=== PATIENT | female | born 1955 | race Caucasian/White ===

== ENCOUNTER → 2016-12-09 | Outpatient (CLI) | payer BC ==
[2016-12-09 08:42] LABS: BASO # 0.1 (0.0-0.2); BASO % 0.4 % (0.0-2.0); EOS # 0.2 (0.0-0.7); EOS % 1.9 % (0-4.0); GRAN # 8.5 (1.4-6.5); GRAN % 70.4 % (42.2-75.2); HEMATOCRIT 41.7 % (37.0-47.0); HEMOGLOBIN 13.8 g/dl (12.5-16.0); LYMPH # 2.8 (1.2-3.4); LYMPH % 23.3 % (20.0-51.0); MEAN CELL VOLUME 85 fl (80.0-100.0); MEAN CORPUSCULAR HEMOGLOBIN 28 pg (27.0-31.0); MEAN CORPUSCULAR HGB CONC 33 g/dl (33.0-37.0); MEAN PLATELET VOLUME 9.4 fl (7.4-10.4); MONO # 0.4 (0.1-0.6); MONO % 3.4 % (1.7-9.3); PLATELET COUNT 377 K/mm3 (130-400); RED BLOOD COUNT 4.93 M/mm3 (4.10-5.30); REDCELL DISTRIBUTION WIDTH-CV 12.5 % (11.5-14.5); WHITE BLOOD COUNT 12.1 K/mm3 (4.8-10.8)
== END ==
LOC: COL.LAB 08:14
PROVIDERS: Family Medicine
DX: R50.9 Fever, unspecified (principal); R05 Cough

== ENCOUNTER → 2018-04-29 | Outpatient (CLI) | payer BC | LOC: MC.RAD 10:00 | DX: Z12.31 Encounter for screening mammogram for malignant neoplasm of breast (principal) ==

== ENCOUNTER → 2019-05-11 | Outpatient (CLI) | payer BC | LOC: MC.RAD 10:45 | DX: Z12.31 Encounter for screening mammogram for malignant neoplasm of breast (principal) ==

== ENCOUNTER 2021-01-02 20:04 | Emergency (ER) | payer BC ==
[~2021-01-02] VITALS: Ht 162.6 cm; Wt 79.5 kg
[2021-01-02] MEDS ORDERED: PROTONIX20 MG PO (20:42)
[2021-01-02 21:29] LABS: BASO % 0.1 % (0.0-2.0); EOS % 0.1 % (0-4.0); GRAN # 10.7 (1.4-6.5); GRAN % 89.6 % (42.2-75.2); HEMATOCRIT 43.2 % (37.0-47.0); HEMOGLOBIN 13.9 g/dl (12.5-16.0); LYMPH # 0.9 (1.2-3.4); LYMPH % 7.2 % (20.0-51.0); MEAN CELL VOLUME 87 fl (80.0-100.0); MEAN CORPUSCULAR HEMOGLOBIN 28 pg (27.0-31.0); MEAN CORPUSCULAR HGB CONC 32 g/dl (33.0-37.0); MEAN PLATELET VOLUME 9.8 fl (7.4-10.4); MONO # 0.3 (0.1-0.6); MONO % 2.7 % (1.7-9.3); PLATELET COUNT 237 K/mm3 (130-400); RED BLOOD COUNT 4.99 M/mm3 (4.10-5.30); REDCELL DISTRIBUTION WIDTH-CV 13.1 % (11.5-14.5)
[2021-01-02 21:49] LABS: ALBUMIN 4.5 gm/dL (3.5-5.0); BILIRUBIN,TOTAL 0.6 mg/dL (0.0-1.0); CALCIUM 9.3 mg/dL (8.4-10.2); CREATININE, serum 0.62 (0.52-1.25); TOTAL PROTEIN 8.3 gm/dL (6.4-8.2)
[2021-01-02] MEDS ORDERED: PHENERGAN 25 TA25 MG PO (22:04)
[2021-01-02 22:57] VITALS: BP 122/87; PULSE 87; TEMP 99.1
== END 2021-01-02 22:57 | disposition home or self-care (01) ==
LOC: COL.ER 20:04
PROVIDERS: Nurse Practitioner Primary Care
DX: R11.2 Nausea with vomiting, unspecified (principal); T50.Z95A Adverse effect of other vaccines and biological substances, initial encounter; Z88.2 Allergy status to sulfonamides; Z88.1 Allergy status to other antibiotic agents; Z87.891 Personal history of nicotine dependence
CPT/HCPCS: J1885; J2550; J7030

== ENCOUNTER → 2021-02-04 | Outpatient (CLI) | payer BC ==
[~2021-02-04] MED LIST: PHENERGAN 25 TA25 MG PO; PROTONIX20 MG PO
== END ==
LOC: MC.RAD 11:40
DX: Z12.31 Encounter for screening mammogram for malignant neoplasm of breast (principal)

== ENCOUNTER → 2022-04-22 | Outpatient (CLI) | payer MEDICARE | LOC: MC.RAD 14:10 | DX: Z12.31 Encounter for screening mammogram for malignant neoplasm of breast (principal) ==

== ENCOUNTER → 2024-04-04 | Outpatient (CLI) | payer MEDICARE, BC | LOC: COL.RAD 15:46 | DX: R74.8 Abnormal levels of other serum enzymes (principal) ==

== ENCOUNTER → 2024-05-06 | Outpatient (CLI) | payer MEDICARE, BC | LOC: MC.RAD 11:05 | DX: Z12.31 Encounter for screening mammogram for malignant neoplasm of breast (principal) ==

== ENCOUNTER → 2024-05-24 | Outpatient (CLI) | payer MEDICARE, BC ==
[~2024-05-24] VITALS: Ht 162.6 cm; Wt 66.9 kg
[2024-05-24] VITALS (12 sets, daily range): BP systolic 106–129; BP diastolic 65–82; PULSE 53–69; TEMP 98.2
[~2024-05-24] MED LIST changes: +ALLEGRA 60MG TA60 MG PO; +AMBIEN 10MG10 MG PO; +BENADRYL25 M2 PO; +CALCIUM 600MG+D1 TAB PO; +ESTRACE0.1 MG/GM VG; +Gelatin Sponge,Absorbable Size 12-7 SPONGE TP SCH; +MAGNESIUM GLYC100 MG PO; +MELATONIN1 MG PO; +PROTONIX 40MG T40 MG PO; +VITAMIN B COMPL1 SGL PO; +VITAMIN K; +[UNRECOGNIZED DRUG - OTHER]
[2024-05-24 07:18] LABS: PROTHROMBIN TIME 10.9 SECONDS (9.7-12.8)
--- NOTE | 2024-05-24 08:14 | NUR ---
SPECIMEN COLLECTED AT [address] CABALLERO PLACED SURGIFOAM AFTER COLLECTING SAMPLE. PATIENT SAYS SHE ONLY HAS A "SMALL ACHE" IN HER RIGHT SHOULDER AFTER PROCEDURE. PATIENT IS AWAKE AND ALERT AND DENIES ANY NEEDS AT THIS TIME.
--- NOTE | 2024-05-24 10:12 | NUR ---
PATIENT COMPLETED HER RECOVERY TIME WITHOUT ANY ISSUES. BANDAGE REMAINED CLEAN, DRY, AND INTACT. PATIENT SAID HER PAIN WAS GETTING BETTER AND IT WAS ONLY 1/10 BY THE TIME SHE LEFT AND SHE WAS SATISFIED WITH THIS. PATIENT WAS ABLE TO TEACH BACK HER D/C INFORMATION AND HAD THE WRITTEN D/C INSTRUCTIONS WITH HER. IV REMOVED WITHOUT ANY ISSUES. PATIENT ABLE TO WAL AROUND WITHOUT ANY ISSUES OR ASSISTANCE. ALL NEEDS MET. PATIENT DRESSED HERSELF AND WAS ESCORTED OUT TO HER RIDE WITH ALL OF HER PERSONAL ITEMS AND PAPERWORK VIA WHEELCHAIR. PATIENT ABLE TO GET INTO FRONT PASSENGER SEAT WITHOUT HELP.
== END ==
LOC: COL.RAD 06:08
PROVIDERS: Internal Medicine Gastroenterology
DX: R74.8 Abnormal levels of other serum enzymes (principal)